=== PATIENT | male | born 1970 | race Caucasian/White ===

== ENCOUNTER → 2020-08-10 | Outpatient (CLI) | payer BC, OTHER ==
[~2020-08-10] MED LIST: KEPP1TAB2 PO
--- NOTE | 2020-08-10 16:20 | RADONC.CN ---
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 He is seen today at the request of Dr. Luna for consideration of neoadjuvant chemoradiation. Diagnosis/Treatment History Oncologic History Fall 2019 developed sensation of rectal fullness, increased BM frequency an incomplete evacuation. 06/25/20 underwent colonoscopy revealing a distal rectal tumor biopsy returned moderately differentiated adenocarcinoma. 06/27/20 CT abdomen pelvis showing subcentimeter mesorectal nodes and distal rec emi wall thickening. 06/29/20 EUS posterolateral right sided distal rectal tumor 1 cm from anal verge with invasion through the wall and enlarged LNs noted. 07/27/20 MRI pelvis 5.2 cm craniocaudal lesion, distal tumor invading anal sphincter complex, extramural invasion in excess of 1 cm abutting the MRF, no findings concerning for T4 disease. No suspicious LN seen. Interval History Juan A is here with his , he is having 10 small BMs daily with tenesmus and rectal pressure, not nyla pain. He has no BPBPR. His appetite is good and weight is stable. No outstanding urinary symptoms. They have discussed that APR is the most likely surgical approach in this setting. They understand that ostomy is a possibility and are OK with proceeding as such. Past Medical History: Traumatic brain injury @ 19 Seizure disorder 2/2 TBI on Keppra Past Surgical History: None Family History: Mesothelioma mom Brother bladder Social History: 40 year tobacco chewer 8-9 beers 3-4 days per week Review of Systems Constitutional: Denies: Chills, Fever, Night Sweats Eyes: Denies: Pain, Vision change HEENT: Denies: Head Aches, Dysphagia, Sore Throat Skin: Denies: Rash, Lesions, Bruising Pulmonary: Denies: Dyspnea, Cough, Pleuritic Chest Pain, Other Symptoms Cardiovascular: Denies: Chest Pain, Palpitations, Edema Gastrointestinal: Denies: Nausea, Vomiting, Abdominal Pain, Diarrhea, Hematochezia Genitourinary: Denies: Dysuria, Frequency, Incontinence Hematologic: Denies: Bruising, Petecchia, Enlarged Lymph Nodes Musculoskeletal: Denies: Neck pain, Back pain Neurological: Denies: Weakness, Numbness, Incoordination Psych: Reports: Mood Normal; Denies: Memory Issues, Thoughts of Self Harm Vital Signs Ht 71" Wt 199 lbs T 98 P 92 RR 18 BP 141/90 O2 99% Pain 0 Fatigue 0 General Exam: Positive: Alert, Cooperative, No Acute Distress Eye Exam: Positive: PERRLA, EOMI ENT EXAM: Positive: Mucous membr. moist/pink, Pharynx Normal Neck Exam: Negative: Thyromegaly, Lymphadenopathy Chest Exam: Positive: Normal air movement; Negative: Rales, Rhonchi, Wheezing Heart Exam: Positive: Rate Normal, Regular Rhythm Abdomen Exam: Positive: Normal bowel sounds, Soft, Other (RUPERTO revealing firm but mobile right lateral rectal tumor several cm in length extending to ~1cm from the verge. The mass is tender. There are no palpable inguinal nodes BL. ); Negative: Tenderness, Mass Extremity Exam: Negative: Edema, Tenderness Skin Exam: Positive: Nl turgor and temperature; Negative: Rash Neuro Exam: Positive: Normal Gait, Normal Speech, Cranial Nerves 3-12 NL Psych Exam: Positive: Mental status NL, Mood NL, Memory Intact Diagnostic and Laboratory Diagnostic Review Radiologic images, relevant labs and pathology reports were personally reviewed and discussed with Mr. Gongora. Assessment and Plan Impression Mr. Gongora is a 50 year old male with a history of low rectal adenocarcinoma [id number] MRF+ invading sphincter complex stage IIIB. He is seen today at the request of Dr. Luna for consideration of neoadjuvant chemoradiation. Stage Rectal adenocarcinoma low [id number] stage IIIB with MRF+ Performance Status ECOG 0 Plan We had an extensive discussion with Mr. Gongora regarding the diagnosis at hand and available therapeutic options. He is a young an healthy man other than prior traumatic brain injury and associated epilepsy which is under good control. He has a very low rectal tumor which is involving the MRF and also invading the sphincter complex. He would benefit from neoadjuvant chemoradiation. I will give 50.4 Gy in 28 fractions and use VMAT in his case given the sphincter involvement and extension to within 1 cm of the anal verge, which compels me to cover the external iliacs and inguinal nodes electively. VMAT is also necessary for genital avoidance as the field will extend low enough to include the perianal skin. He will also need medical oncology referral for xeloda which I will facilitate. We discussed the logistics of receiving radiation therapy in detail including the need for a 1-time planning session. This can occur next week. We reviewed the side effects of treatment including fatigue, skin reaction, pain, tenesmus, and diarrhea. After discussing the risks, benefits and alternatives to radiation therapy, Mr. Gongora was amenable to pursuing radiotherapy. All questions were answered to the patient's satisfaction. We instructed the patient that if there were any questions,concerns or changes in clinical status in the interim to contact us. Recommendations Neoadjuvant chemoradiation 50.4 Gy in 28 fractions with VMAT due to anal sphincter involvement Simulation in the next week Medical oncology referral for Xeloda Billing Statement Total time of [40] minutes was spent preparing for the visit [2], obtaining HPI [4], examining the patient [3], reviewing diagnostic tests [5], discussing management options [11], coordinating care [2], and writing this note [13]. DOMI BAINS MD Aug 10, 2020 16:20
== END ==
LOC: M ONCR 14:25
PROVIDERS: ATTEND General Practice
DX: C20 Malignant neoplasm of rectum (principal); Z87.820 Personal history of traumatic brain injury; F17.220 Nicotine dependence, chewing tobacco, uncomplicated

== ENCOUNTER → 2020-09-12 | Outpatient (RCR) | payer BC ==
[~2020-09-12] MED LIST changes: +CAPE1TAB PO; +CAPE1TAB2 PO
== END ==
LOC: M ONCR 08-22 12:58
PROVIDERS: ATTEND General Practice
DX: C20 Malignant neoplasm of rectum (principal)

== ENCOUNTER → 2020-10-12 | Outpatient (RCR) | payer BC ==
[~2020-10-12] MED LIST changes: +HYDR25OIN TOP; +LIDO5CRE6 TOP; +OXYC-517 PO
== END ==
LOC: M ONCR 09-13 11:05
PROVIDERS: ATTEND General Practice
DX: C20 Malignant neoplasm of rectum (principal)

== ENCOUNTER 2020-10-17 10:43 | Outpatient (RCR) | payer BC ==
[2020-10-19] MEDS ORDERED: CAPE1TAB2 PO (13:43)
== END 2020-11-12 ==
LOC: M ONCR 10:43
PROVIDERS: ATTEND General Practice
DX: C20 Malignant neoplasm of rectum (principal)

== ENCOUNTER → 2021-01-30 | Outpatient (CLI) | payer BC ==
[~2021-01-30] MED LIST changes: +LIDOCAINE 1% MDV 20ML VIAL As Ordered ONE; +MIDAZOLAM INJ 2MG/2ML VIAL (J2250 PER 1MG) As Ordered ONE; +NEUR300C PO; +NS 1,000 ML IV SCH; +OXYC1TAB23 PO; +PROC10TA4 PO; +ceFAZolin SOD 2 GM in IV 1 EA IV ONE; +diphenhydrAMINE 50MG/ML VIAL (J1200) As Ordered ONE; +fentaNYL 100 MCG/2 ML INJECTION (J3010) As Ordered ONE
--- NOTE | 2021-01-30 14:22 | IRHP ---
[facility] IR Pre-Procedure H & P General Date of Service: Jan 30, 2021 Procedure: Same Day Surgery Interval History and Physical I have seen the patient and reviewed last H & P performed within 30 days. There is no significant interval change. History of Present Illness Chief Complaint The patient is a 50-year-old male admitted with a reason for visit of Rectal Ca. PRE-PROCEDURE DIAGNOSIS: Rectal cancer HEART: Normal rate. LUNGS: Normal breathing at rest. ASA Classification ASA Classification: II-Mild systemic disease, III-Severe systemic dis. Mallampati Score: II NPO: Yes Problems with prior sedation: No Obstructive Sleep Apnea: No Plan moderate sedation Allergies Coded Allergies: No Known Allergies (Unverified , 08/22/20) Home Medications Scheduled Capecitabine (Capecitabine), 3 TAB PO BID Capecitabine (Capecitabine), 150 MG PO BID Gabapentin (Neurontin), 300 MG PO TID, (Reported) Levetiracetam (Keppra), 750 MG PO DAILY, (Reported) Scheduled PRN Oxycodone HCl/Acetaminophen (Oxycodone-Acetaminophen 5-325), 1 TAB PO QIDP PRN for pain, (Reported) VS, I&O, 24H, Fishbone Vital Signs/I&O Vital Signs Date Time Temp Pulse Resp B/P (MAP) Pulse Ox O2 Delivery O2 Flow Rate FiO2 01/30/21 12:55 98.0 71 18 97 Room Air WILFRID MILAN MD Jan 30, 2021 14:22
[2021-01-30 16:40] VITALS: BP 134/94
--- NOTE | 2021-01-31 15:10 | IRPON ---
IR Postoperative Note Date Of Procedure: Jan 30, 2021 Time Of Procedure: 16:00 IR Postoperative Note IR Ultrasound and fluoroscopy guided port placement IR Ultrasound of the neck. IR Moderate sedation. Clinical indication: Rectal cancer. Physician: Dr. Costello. Procedure: The patient was advised of the benefits, risks, and alternatives of the procedure and informed consent was obtained. A time-out was performed with verification of the patient's name, MRN, site of procedure and type of procedure to be performed. The patient was positioned in the supine position on the angiographic table. The site was prepped and draped in the usual sterile fashion. Moderate sedation was performed by the physician including the presence of an independent trained RN who assisted and monitored the patient's level of consciousness and physiologic status. Following the administration of fentanyl and Versed , the physician spent 45 minutes of continuous face to face time with the patient. Ultrasound of the neck reveals a patent and compressible right internal jugular vein. A campus rep radiograph reveals no gross abnormality. The neck and anterior chest wall were anesthetized with lidocaine. The right internal jugular vein was accessed using a microintroducer needle under ultrasound guidance, via a lateral approach. An 018 wire was advanced into the superior vena cava, the needle was removed and a microsheath was placed. An Amplatz wire was then passed into the inferior vena cava. An incision at the internal jugular vein access site and anterior chest wall were made using a scalpel. An incision was made at the anterior chest wall. A small pocket was created using a combination of blunt and sharp dissection. A tunneling device was then used to pass the catheter from the pocket to the neck puncture site. An 8- [employer] Smart power port was then positioned in the pocket. The catheter was then measured and cut. The introducer sheath was exchanged for a peel-away sheath. The catheter was passed through the peel-away sheath into the internal jugular vein and the peel-away sheath was removed. The port tip was positioned at the cavoatrial junction. The port was then accessed with a Emanuel needle. The port flushes and aspirates well. The puncture site in the neck was closed. The chest wall incision was then closed with 2-0 Vicryl and 4-0 Monocryl. Glue and Steri- Strips were applied. A sterile dressing was then applied. The patient tolerated the procedure well and was returned to the PRU in stable condition. Estimated blood loss: <5 ml. Complications: None. Conclusion: 1. Successful placement of an 8-[employer] Smart power port via the right internal jugular vein. The port is ready for immediate use. 2. Patient to follow up in IR clinic in 2 weeks. Thank you for this referral. WILFRID COSTELLO MD Jan 31, 2021 15:09
== END ==
LOC: M IRPRO 12:33
PROVIDERS: ATTEND Internal Medicine Medical Oncology
DX: C20 Malignant neoplasm of rectum (principal)
CPT/HCPCS: 36561; 99152; 99153; C1769; C1788; C1894; J0690; J1200; J1642; J1644; J2250; J3010

== ENCOUNTER → 2021-04-24 | Outpatient (CLI) | payer BC ==
[~2021-04-24] MED LIST changes: -LIDOCAINE 1% MDV 20ML VIAL As Ordered ONE; -MIDAZOLAM INJ 2MG/2ML VIAL (J2250 PER 1MG) As Ordered ONE; -NS 1,000 ML IV SCH; -ceFAZolin SOD 2 GM in IV 1 EA IV ONE; -diphenhydrAMINE 50MG/ML VIAL (J1200) As Ordered ONE; -fentaNYL 100 MCG/2 ML INJECTION (J3010) As Ordered ONE
--- NOTE | 2021-04-24 13:09 | RADONC ---
Radiation Oncology Hx/FUP Radiation Oncology Hx/FUP Date of Service: Apr 24, 2021 Pt Identifier Juan A Gongora is a 50 year old male seen for a followup visit today at the department of radiation oncology for a history of low rectal adenocarcinoma [id number] MRF+ invading sphincter complex stage IIIB. He completed 50.4 Gy in 28 fractions with xeloda 09/10/20-10/17/20. He then underwent APR on 12/19/20 revealing ypT2N0. He continues on adjuvant CAPEOX with Dr. Benavidez. Diagnosis/Treatment History Oncologic History Fall 2019 developed sensation of rectal fullness, increased BM frequency an incomplete evacuation. 06/25/20 underwent colonoscopy revealing a distal rectal tumor biopsy returned moderately differentiated adenocarcinoma. 06/27/20 CT abdomen pelvis showing subcentimeter mesorectal nodes and distal rectal wall thickening. 06/29/20 EUS posterolateral right sided distal rectal tumor 1 cm from anal verge with invasion through the wall and enlarged LNs noted. 07/27/20 MRI pelvis 5.2 cm craniocaudal lesion, distal tumor invading anal sphin cter complex, extramural invasion in excess of 1 cm abutting the MRF, no findings concerning for T4 disease. No suspicious LN seen. 09/10/20-10/17/20 Chemoradiation 50.4 Gy in 28 fractions with xeloda 12/19/20 APR (Cheryl) ypT2N0 0/12 LN+ treatment effect present Interval History Reports he has just received cycle 4 of CAPEOX. No pain to speak of, does get some tingling in the fingers with oxaliplatin. He feels very fatigued for the week after he receives chemo. No nausea/vomiting. He did have COVID on 02/27- 03/14. Appetite is good. Ostomy output is loose and brown. Current Therapy CAPEOX from 02/26/21- Stage Rectal adenocarcinoma low [id number] stage IIIB with MRF+ --> [id number] stage I Social History: 40 year tobacco chewer 8-9 beers 3-4 days per week Allergies / Meds Allergies: Coded Allergies: No Known Allergies (Unverified , 08/22/20) Home Meds Active Scripts Prochlorperazine Maleate (Prochlorperazine Maleate) 10 Mg Tablet, 10 MG PO Q6H PRN for NAUSEA OR VOMITING, #40 TAB 6 Refills Prov:EMILY BENAVIDEZ MDFRCP 01/30/21 Capecitabine (Capecitabine) 150 Mg Tablet, 150 MG PO BID for cancer MDD 1650 mg bid for 14 Days, #28 TAB 3 Refills 1650 mg bid for 14 days and then 7 days off total of 4 cycles Prov:ASHELY STEIN MD 01/23/21 Capecitabine (Capecitabine) 500 Mg Tablet, 3 TAB PO BID for cancer MDD 1650 mg bid for 14 Days, #84 TAB 3 Refills 1650 mg bid for 14 days and then 7 days off total of 4 cycles Prov:ASHELY STEIN MD 01/23/21 Reported Medications Levetiracetam (Keppra) 750 Mg Tablet, 750 MG PO DAILY, TAB 08/10/20 Review of Systems Review of Systems Constitutional: Reports: Fatigue; Denies: Weight Loss Eyes: Denies: Pain HEENT: Denies: Head Aches Skin: Denies: Rash Pulmonary: Denies: Dyspnea, Cough Cardiovascular: Denies: Chest Pain Gastrointestinal: Denies: Abdominal Pain Musculoskeletal: Denies: Back pain Neurological: Denies: Weakness, Numbness Psych: Reports: Mood Normal Physical Examination Vital Signs Wt 193 lbs T 98 P 99 RR 18 BP 146/93 O2 98% Pain 0 Fatigue 0 General Exam: Alert, Cooperative, No Acute Distress Eye Exam: PERRLA, EOMI Chest Exam: Clear to auscultation Heart Exam: Rate Normal Abdomen Exam: Soft, Other (Loose brown ostomy output) Extremity Exam: Negative: Edema Skin Exam: Nl turgor and temperature Neuro Exam: Normal Gait, Normal Speech, Cranial Nerves 3-12 NL Psych Exam: Mental status NL Other Physical Findings Gluteal crease without wound or skin changes, anus absent. BL groins without adenopathy or hyperpigmentation. Diagnostic and Laboratory Diagnostic Review Radiologic images, relevant labs and pathology reports were personally reviewed and discussed with Mr. Gongora. Assessment and Plan Impression Assessment Mr. Gongora is a 50 year old male with a history of low rectal adenocarcinoma [id number] MRF+ invading sphincter complex stage IIIB. He completed 50.4 Gy in 28 fractions with xeloda 09/10/20-10/17/20. He then underwent APR on 12/19/20 revealing ypT2N0. He continues on adjuvant CAPEOX with Dr. Benavidez. Galindo is doing well. He had a good response to neoadjuvant chemoradiation on his APR specimen. He continues with adjuvant chemotherapy. He has no late sequelae of RT at this time. I discussed that his risk of recurrence is overall low given the favorable response initially. He is overall pleased with his QOL. With respect to the duration of chemotherapy, which he asked about, I stated the usual duration is 6 cycles or so. I will see him back in 6 months. He has close medical oncology and surgical follow up as well. Performance Status ECOG 1 Plan Follow up in 6 months Mr. Gongora was encouraged to call with questions or concerns in the interim period. Billing Statement Total time of [24] minutes was spent preparing for the visit [2], obtaining HPI [4], examining the patient [2], reviewing diagnostic tests [3], discussing management options [5], coordinating care [1], and writing this note [7]. DOMI BAINS MD Apr 24, 2021 13:09
== END ==
LOC: M ONCR 11:25
PROVIDERS: ATTEND General Practice
DX: C20 Malignant neoplasm of rectum (principal); F17.220 Nicotine dependence, chewing tobacco, uncomplicated; Z92.3 Personal history of irradiation; Z92.21 Personal history of antineoplastic chemotherapy; Z79.899 Other long term (current) drug therapy

== ENCOUNTER → 2021-09-10 | Outpatient (POV) | payer OTHER ==
[~2021-09-10] VITALS: Ht 180.3 cm; Wt 91.8 kg
[~2021-09-10] MED LIST changes: -PROC10TA4 PO; +PROC10TA5 PO
[2021-09-10 14:10] VITALS: BP 136/81
== END ==
LOC: M IRPOV 13:45
PROVIDERS: ATTEND Radiology Diagnostic Radiology
DX: Z45.2 Encounter for adjustment and management of vascular access device (principal)

== ENCOUNTER 2021-09-11 12:04 | Outpatient (CLI) | payer OTHER ==
[~2021-09-11] VITALS: Ht 180.3 cm; Wt 92.8 kg
[~2021-09-11 12:04] MED LIST changes: +ALTEPLASE 2MG/2ML VIAL XX ONE; +ALTEPLASE 2MG/2ML VIAL XX PRN; +SODIUM CHLORIDE 0.9% INJ 10 ML SYR IV PRN; +SODIUM CHLORIDE 0.9% INJ 10 ML SYR IV SCH
[2021-09-11 12:10] VITALS: BP 131/80
== END 2021-09-11 12:45 | disposition home or self-care (01) ==
LOC: M INFU 12:04
PROVIDERS: ATTEND Radiology Diagnostic Radiology
DX: C20 Malignant neoplasm of rectum (principal)

== ENCOUNTER → 2021-10-30 | Outpatient (CLI) | payer BC, OTHER ==
[~2021-10-30] MED LIST changes: -ALTEPLASE 2MG/2ML VIAL XX ONE; -ALTEPLASE 2MG/2ML VIAL XX PRN; -SODIUM CHLORIDE 0.9% INJ 10 ML SYR IV PRN; -SODIUM CHLORIDE 0.9% INJ 10 ML SYR IV SCH
== END ==
LOC: M ONCR 10:52
PROVIDERS: ATTEND General Practice
DX: C20 Malignant neoplasm of rectum (principal); F17.220 Nicotine dependence, chewing tobacco, uncomplicated; R91.8 Other nonspecific abnormal finding of lung field; Z88.0 Allergy status to penicillin; Z90.49 Acquired absence of other specified parts of digestive tract; Z92.3 Personal history of irradiation; Z92.21 Personal history of antineoplastic chemotherapy; Z92.29 Personal history of other drug therapy; Z93.3 Colostomy status

== ENCOUNTER → 2024-04-27 | Outpatient (CLI) | payer OTHER ==
[~2024-04-27] VITALS: Ht 180.3 cm; Wt 94.0 kg
[~2024-04-27] MED LIST changes: +DOXY100T; +LIDOCAINE 1% MDV 20ML VIAL As Ordered ONE; +MIDAZOLAM INJ 2MG/2ML VIAL As Ordered ONE; +NS 1,000 ML IV SCH; +ceFAZolin 2 GM/D5W 50 ML IV BAG As Ordered ONE; +fentaNYL 100 MCG/2 ML INJECTION As Ordered ONE
[2024-04-27 12:50] VITALS: TEMP 98
[2024-04-27] MEDS: ceFAZolin SOD 2 GM in IV 1 EA IV ONE (13:06)
[2024-04-27 14:05] VITALS: BP 131/94; O2SAT 97
== END ==
LOC: M IRPRO 12:03
PROVIDERS: ATTEND Specialist
DX: C20 Malignant neoplasm of rectum (principal)
CPT/HCPCS: 36590; 99152; J0690; J2250; J3010